=== PATIENT | male | born 1940 | race Two or more races ===

== ENCOUNTER 2024-10-24 00:05 | Inpatient (IN) | payer MEDICARE, OTHER ==
[~2024-10-24] VITALS: Ht 167.6 cm; Wt 74.8 kg
[~2024-10-24 00:05] MED LIST: AMIN30LI25 PO
[2024-10-24 00:53] LABS: BASOPHILS # (AUTO) 0.1 K/uL (0.0-0.2); BASOPHILS % (AUTO) 0.6 % (0.0-2.0); EOSINOPHILS # (AUTO) 0.5 K/uL (0.0-0.7); EOSINOPHILS % (AUTO) 5.4 % (0.0-6.0); HEMATOCRIT 36 % (39-51); HEMOGLOBIN 11.7 g/dL (13.5-17.5); LYMPHOCYTES # (AUTO) 2.1 K/uL (0.8-4.8); LYMPHOCYTES % (AUTO) 25.3 % (20.0-44.0); MEAN CORPUSCULAR HEMOGLOBIN 30 PG (26.0-33.0); MEAN CORPUSCULAR HGB CONC 33 g/dl (31.0-36.0); MEAN CORPUSCULAR VOLUME 90 fL (80-96); MONOCYTES # (AUTO) 0.6 K/uL (0.1-1.30); MONOCYTES % (AUTO) 7.1 % (2.0-12.0); NEUTROPHILS # (AUTO) 5.2 K/uL (1.8-8.9); NEUTROPHILS % (AUTO) 61.6 % (43.0-81.0); PLATELET COUNT (AUTO) 215 K/uL (150-450); RED BLOOD CELL COUNT(AUTO) 3.98 MIL/uL (4.5-6.0); WHITE BLOOD COUNT (AUTO) 8.4 K/uL (4.3-11.0)
[2024-10-24 01:12] LABS: ALANINE AMINOTRANSFERASE 14 U/L (12-78); ALBUMIN 3.5 g/dL (3.4-5.0); ALCOHOL, BLOOD < 3 mg/dL (0-10); ALKALINE PHOSPHATASE 136 U/L (46-116); ASPARTATE AMINOTRANSFERASE 15 U/L (15-37); BILIRUBIN,DIRECT 0.1 mg/dL (0.0-0.2); BILIRUBIN,TOTAL 0.2 mg/dL (0.2-1.0); CALCIUM, SERUM 9.4 mg/dL (8.5-10.1); CARBON DIOXIDE 26 mmol/L (21-32); CHLORIDE 108 mmol/L (98-107); CREATININE 0.8 mg/dL (0.6-1.3); GLUCOSE 110 mg/dL (74-106); POTASSIUM 4.5 mmol/L (3.5-5.1); SODIUM SERUM 142 mmol/L (136-145); TOTAL PROTEIN, SERUM 6.7 g/dL (6.4-8.2); UREA NITROGEN, BLOOD 23 mg/dL (7-18)
[2024-10-24 01:16] LABS: ACETAMINOPHEN <10 ug/ml (10-30); SALICYLATE 0.8 mg/dL (2.8-20.0)
[2024-10-24] MEDS ORDERED: diphenhydrAMINE HCL 50 MG/ML VIAL ONE (01:35)
[2024-10-24] MEDS ORDERED: LORAZEPAM INJ 2 MG/ML VIAL ONE (01:36)
[2024-10-24] MEDS: LORAZEPAM INJ 2 MG/ML VIAL IV ONE (01:41)
[2024-10-24] MEDS: diphenhydrAMINE HCL 50 MG/ML VIAL IV ONE (01:41)
[2024-10-24 01:44] LABS: APPEARANCE,URINE CLEAR (CLEAR); BILIRUBIN,URINE NEGATIVE (NEGATIVE); BLOOD, URINE NEGATIVE Ery/uL (NEGATIVE); COLOR,URINE YELLOW (YELLOW); KETONES,URINE NEGATIVE (NEGATIVE); LEUKOCYTE ESTERASE ,URINE NEGATIVE (NEGATIVE); NITRITE, URINE NEGATIVE (NEGATIVE); PROTEIN,URINE NEGATIVE (NEGATIVE); UGLUCOSE NEGATIVE (NEGATIVE); UROBILINOGEN,URINE 0.2 EU/dL (0.2)
[2024-10-24 02:38] LABS: AMPHETAMINE, URINE NEGATIVE (NEGATIVE); BARBITURATE, URINE NEGATIVE (NEGATIVE); BENZODIAZEPINE, URINE NEGATIVE (NEGATIVE); CANNABINOID, URINE NEGATIVE (NEGATIVE); COCCAINE, URINE NEGATIVE (NEGATIVE); OPIATE, URINE NEGATIVE (NEGATIVE); PHENCYCLIDINE SCREEN,URINE NEGATIVE (NEGATIVE)
[2024-10-24] MEDS ORDERED: MAG HYDROX/AL HYDROX/SIMETH 30 ML UDC PO PRN (03:30)
[2024-10-24] MEDS ORDERED: TEMAZEPAM 7.5 MG CAPSULE PO PRN (03:30)
[2024-10-24] MEDS ORDERED: MAGNESIUM HYDROXIDE 30 ML UDC PO PRN (03:30)
[2024-10-24] MEDS ORDERED: LORAZEPAM 0.5 MG TABLET PO PRN (03:30)
[2024-10-24] MEDS ORDERED: ACETAMINOPHEN 325 MG TABLET PO PRN ×2 (03:30→09:00)
[2024-10-24] MEDS: BLOOD SUGAR DIAGNOSTIC 1 EACH STRIP IN ONE (03:42)
[2024-10-24 04:03] VITALS: BP 132/60; TEMP 98; O2SAT 99
[2024-10-24] MEDS ORDERED: FAMO20TA80 PO (04:51)
[2024-10-24] MEDS ORDERED: HYDR-4077 PO (04:51)
[2024-10-24] MEDS ORDERED: TRAZ-182 PO (04:51)
[2024-10-24] MEDS ORDERED: MIRT7.5T10 PO (04:51)
[2024-10-24] MEDS ORDERED: OLAN10TA3 PO (04:51)
[2024-10-24 08:00] VITALS: BP 119/88; TEMP 97.7; O2SAT 98
[2024-10-24] MEDS ORDERED: HYDR50TA61 PO (08:02)
[2024-10-24] MEDS ORDERED: ACET325T53 PO (08:02)
[2024-10-24] MEDS: DIVALPROEX SODIUM 125 MG CAP.SPRINK PO SCH (12:54)
[2024-10-24 16:00] VITALS: BP 123/74; TEMP 98; O2SAT 98
[2024-10-24 20:23] VITALS: BP 123/83; TEMP 98; O2SAT 98
[2024-10-24] MEDS: OLANZAPINE 10 MG TABLET PO SCH (21:13)
[2024-10-25 08:00] VITALS: BP 124/59; TEMP 98.6; O2SAT 96
[2024-10-25] MEDS: FAMOTIDINE (20 MG) 20 MG TABLET PO SCH (08:25)
[2024-10-25] MEDS: LORAZEPAM 0.5 MG TABLET PO PRN (10:03)
[2024-10-25] MEDS: OLANZAPINE 10 MG VIAL IM STA (15:24)
[2024-10-25 15:25] VITALS: BP 119/72; TEMP 98.6; O2SAT 98
[2024-10-25 20:00] VITALS: BP 126/71; TEMP 98.1; O2SAT 98
[2024-10-25 23:00] VITALS: BP 122/70; TEMP 98.2; O2SAT 98
[2024-10-26 08:00] VITALS: BP 111/91; TEMP 97.6; O2SAT 99
[2024-10-26] MEDS: OLANZAPINE 2.5 MG TABLET PO SCH (12:31)
[2024-10-26 16:00] VITALS: BP 122/66; TEMP 98; O2SAT 97
[2024-10-26 20:00] VITALS: BP 104/64; TEMP 98.6; O2SAT 97
[2024-10-27 08:00] VITALS: BP 106/67; TEMP 97.9; O2SAT 98
[2024-10-27] MEDS: OLANZAPINE 2.5 MG TABLET PO SCH (08:01)
[2024-10-27 16:00] VITALS: BP 127/69; TEMP 97.9; O2SAT 100
[2024-10-27 20:00] VITALS: BP 158/88; TEMP 97.9; O2SAT 97
[2024-10-28 08:00] VITALS: BP 115/70; TEMP 97.9; O2SAT 99
[2024-10-28 16:00] VITALS: BP 115/67; TEMP 97.6; O2SAT 97
[2024-10-28 21:34] VITALS: BP 131/71; TEMP 98; O2SAT 100
[2024-10-29 08:00] VITALS: BP 125/56; TEMP 98.4; O2SAT 97
[2024-10-29 15:33] VITALS: BP 128/67; TEMP 97.5; O2SAT 100
[2024-10-29 20:59] VITALS: BP 142/58; TEMP 97.8; O2SAT 97
[2024-10-29] MEDS: TEMAZEPAM 7.5 MG CAPSULE PO PRN (22:01)
[2024-10-30 08:00] VITALS: BP 123/67; TEMP 98.6; O2SAT 98
[2024-10-30] MEDS: DIVALPROEX SODIUM 125 MG CAP.SPRINK PO SCH (14:22)
[2024-10-30 16:00] VITALS: BP 143/77; TEMP 97.7; O2SAT 98
[2024-10-30 20:23] VITALS: BP 134/76; TEMP 97.8; O2SAT 99
[2024-10-31 08:00] VITALS: BP 121/68; TEMP 97.9; O2SAT 98
[2024-10-31 16:00] VITALS: BP 136/68; TEMP 97.9; O2SAT 99
[2024-10-31 19:49] VITALS: BP 133/69; TEMP 97.8; O2SAT 98
[2024-11-01 08:00] VITALS: BP 120/70; TEMP 98; O2SAT 96
[2024-11-01 16:00] VITALS: BP 123/56; TEMP 98.1; O2SAT 97
[2024-11-01 20:55] VITALS: BP 113/67; TEMP 98.2; O2SAT 97
[2024-11-02 07:05] LABS: BASOPHILS % (AUTO) 0.4 % (0.0-2.0); EOSINOPHILS # (AUTO) 0.4 K/uL (0.0-0.7); EOSINOPHILS % (AUTO) 6.3 % (0.0-6.0); HEMATOCRIT 37 % (39-51); HEMOGLOBIN 12.7 g/dL (13.5-17.5); LYMPHOCYTES # (AUTO) 2.2 K/uL (0.8-4.8); LYMPHOCYTES % (AUTO) 32.2 % (20.0-44.0); MEAN CORPUSCULAR HEMOGLOBIN 30 PG (26.0-33.0); MEAN CORPUSCULAR HGB CONC 34 g/dl (31.0-36.0); MEAN CORPUSCULAR VOLUME 89 fL (80-96); MONOCYTES # (AUTO) 0.6 K/uL (0.1-1.30); MONOCYTES % (AUTO) 9.1 % (2.0-12.0); NEUTROPHILS # (AUTO) 3.6 K/uL (1.8-8.9); PLATELET COUNT (AUTO) 191 K/uL (150-450); RED BLOOD CELL COUNT(AUTO) 4.19 MIL/uL (4.5-6.0); RED CELL DISTRIBUTION WIDTH 13.6 % (11.5-15.0)
[2024-11-02 07:35] LABS: ALBUMIN 3.6 g/dL (3.4-5.0); BILIRUBIN,TOTAL 0.3 mg/dL (0.2-1.0); CREATININE 0.8 mg/dL (0.6-1.3); POTASSIUM 4.3 mmol/L (3.5-5.1); TOTAL PROTEIN, SERUM 7.1 g/dL (6.4-8.2)
[2024-11-02 07:58] LABS: CALCIUM, SERUM 9.2 mg/dL (8.5-10.1)
[2024-11-02 08:00] VITALS: BP 113/63; TEMP 97.4; O2SAT 97
[2024-11-02 16:00] VITALS: BP 114/61; TEMP 98; O2SAT 100
[2024-11-02 20:00] VITALS: BP 123/69; TEMP 98.5; O2SAT 100
[2024-11-03 08:00] VITALS: BP 137/83; TEMP 97.8; O2SAT 97
[2024-11-03 16:00] VITALS: BP 121/70; TEMP 97.8; O2SAT 98
[2024-11-03 21:43] VITALS: BP_SYST 109; BP_SYST 175; BP_DIAS 72; BP_DIAS 93; TEMP 97.5; TEMP 98.4; O2SAT 98
[2024-11-04 08:00] VITALS: BP 100/69; TEMP 98; O2SAT 100
[2024-11-04 16:00] VITALS: BP 111/66; TEMP 97.7; O2SAT 96
[2024-11-04 21:29] VITALS: BP 112/53; TEMP 97.7; O2SAT 98
[2024-11-05 08:00] VITALS: BP 136/72; TEMP 98.6; O2SAT 100
[2024-11-05 16:00] VITALS: BP 114/62; TEMP 98.4; O2SAT 98
[2024-11-05 21:11] VITALS: BP 129/69; TEMP 98.4; O2SAT 98
[2024-11-06 16:00] VITALS: BP 129/80; TEMP 97.7; O2SAT 98
[2024-11-06 19:51] VITALS: BP 122/69; TEMP 98.6; O2SAT 98
[2024-11-07 08:00] VITALS: BP 135/86; TEMP 97.8; O2SAT 99
== END 2024-11-07 15:20 | DRG 885 ==
LOC: ER 00:09 → GPS 01:46
PROVIDERS: ADMIT Psychiatry & Neurology Psychosomatic Medicine
DX: F25.0 Schizoaffective disorder, bipolar type (principal); F03.94 Unspecified dementia, unspecified severity, with anxiety; F03.93 Unspecified dementia, unspecified severity, with mood disturbance; F03.92 Unspecified dementia, unspecified severity, with psychotic disturbance; F03.918 Unspecified dementia, unspecified severity, with other behavioral disturbance; F03.911 Unspecified dementia, unspecified severity, with agitation; F29 Unspecified psychosis not due to a substance or known physiological condition; F32.A Depression, unspecified; K21.9 Gastro-esophageal reflux disease without esophagitis; F39 Unspecified mood [affective] disorder; Z91.81 History of falling; Z73.6 Limitation of activities due to disability; R53.1 Weakness; R27.8 Other lack of coordination; F41.9 Anxiety disorder, unspecified
CPT/HCPCS: 36415; 80048-TC; 80053-TC; 80076-TC; 80164-TC; 82962-TC; 85025-TC; 97112-TC; 97116-TC; 97530-TC; G0480; J1200; J2060; J3490